=== PATIENT | female | born 1970 | race Caucasian/White ===

== ENCOUNTER 2022-07-02 06:25 | Day surgery (SDC) | payer OTHER, SELFPAY ==
[2022-07-02] MEDS: BUPIVACAINE 0.5% 30 ML INJECTION (06:43)
[2022-07-02 06:50] VITALS: BP 125/80; PULSE 72; RESP 16; TEMP 36.9; O2SAT 100
[2022-07-02 06:56] VITALS: BMI 24.9
[2022-07-02] MEDS: ETHYL CHLORIDE 1 APPLICATION 1 APPLIC TOPICAL (07:24)
[2022-07-02 07:25] VITALS: BP 168/89; PULSE 97; RESP 16; O2SAT 99
[2022-07-02 07:30] VITALS: BP 169/82; PULSE 73; RESP 15; O2SAT 100
[2022-07-02 07:35] VITALS: BP 166/86; PULSE 81; RESP 16; O2SAT 100
[2022-07-02 07:40] VITALS: BP 156/77; PULSE 76; RESP 16; TEMP 36.9; O2SAT 100
[2022-07-02 07:45] VITALS: BP 168/84; PULSE 76; RESP 16; TEMP 36.9; O2SAT 100
--- NOTE | 2022-07-02 09:14 | PM.ORPRC ---
Procedure Note Date of procedure: 07/02/22 Procedure: PREOPERATIVE DIAGNOSIS: 1. Right carpal tunnel syndrome POSTOPERATIVE DIAGNOSIS: 1. Right carpal tunnel syndrome PROCEDURE: 1. Right open carpal tunnel release SURGEON: mEory Long MD. [employer] OFFICER: Arian Agustin PA-C ANESTHESIA: Local anesthetic (50:50 mixture of 1% lidocaine with epi and 0.5% marcaine plain) IMPLANTS: None EBL: 2 mL TOURNIQUET: None COMPLICATIONS: None evident INDICATIONS: The patient is a pleasant 51-year-old female who has experienced right hand numbess/tingling affecting the radial 3.5 digits for multiple months. It has progressively gotten worse. Nonoperative management has been tried and failed, and therefore surgery was recommended. DESCRIPTION OF PROCEDURE: Following a thorough discussion of risks, benefits, and alternatives consent was obtained and the operative extremity was marked. The patient was brought to the operating room and placed supine on the operating table. Local anesthesia induction was undertaken in preop holding. No antibiotics were administered as this was planned to be a local case only. Proper time-out was performed identifying proper patient, site, and procedure. The operative extremity was prepped and draped in the appropriate sterile fashion using ChloraPrep. An incision was made in line with the radial border of the ring finger beginning 1 cm distal to the distal wrist crease and progressing for another 2.5cm distal. Caution was taken to stay proximal to Pedroza's cardinal line. Sharp incision through the skin, subcutaneous tissue, and palmar fascia was performed. The thenar musculature was bluntly elevated off the transverse carpal ligament. The ligament was directly visualized, and divided sharply with a 15 blade. This was released from its most proximal to the most distal extent. Metzenbaum scissor was also utilized to release the fascia extension proximally. We confirmed complete release of the transverse carpal ligament. Closure was performed with 4-O nylon in interrupted fashion. Soft dressings were applied, and the patient was transferred to the recovery room in stable condition. PLAN: 1. Encourage elevation of the operative extremity. 2. Range of motion of the fingers and hand/wrist as tolerated. 3. Ibuprofen/acetaminophen and/or Percocet as needed for pain control. 4. Follow up with PA visit or nurse visit in 12-16 days for wound check and suture removal.
== END 2022-07-02 22:00 | disposition home or self-care (01) ==
PROVIDERS: PCP Family Medicine; Visit Provider Orthopaedic Surgery Sports Medicine
PROC: (CPT 64721; principal; 2022-07-02 07:30)
DX: G56.01 Carpal tunnel syndrome, right upper limb (principal)
CPT/HCPCS: 64721; J3490

== ENCOUNTER 2022-09-17 06:27 | Day surgery (SDC) | payer OTHER, SELFPAY ==
[2022-09-17] VITALS (7 sets, daily range): BP systolic 131–152; BP diastolic 66–93; PULSE 65–75; RESP 16–18; TEMP 36.5–36.8; O2SAT 96–100; BMI 25.3
[2022-09-17] MEDS: BUPIVACAINE 0.5% 30 ML INJECTION (06:50)
[2022-09-17] MEDS: ETHYL CHLORIDE 1 APPLICATION 1 APPLIC TOPICAL (06:50)
--- NOTE | 2022-09-17 07:25 | SUR.PREOP ---
SAME DAY SURGERY LOCAL INJECTION SITE VERIFICATION WAS PERFORMED BY SURGEON/PA AND PATIENT PRIOR TO LOCAL ANESTHETIC BEING INJECTED TO OPERATIVE SITE. Left Wrist, Dr Long 0632 09/17/22
--- NOTE | 2022-09-17 07:39 | PM.ORPRC ---
Procedure Note Date of procedure: 09/17/22 Procedure: PREOPERATIVE DIAGNOSIS: 1. Left carpal tunnel syndrome POSTOPERATIVE DIAGNOSIS: 1. Left carpal tunnel syndrome PROCEDURE: 1. Left open carpal tunnel release SURGEON: Emory Long MD. TIRE REPAIR MECHANIC: CLAUDIO Dalton ANESTHESIA: Local anesthetic (50:50 mixture of 2% lidocaine with epi and 0.5% marcaine plain) IMPLANTS: None EBL: 2 mL TOURNIQUET: None COMPLICATIONS: None evident INDICATIONS: The patient is a pleasant 52-year-old female who has experienced left hand numbess/tingling affecting the radial 3.5 digits for multiple months. It has progressively gotten worse. Nonoperative management has been tried and failed, and therefore surgery was recommended. DESCRIPTION OF PROCEDURE: Following a thorough discussion of risks, benefits, and alternatives consent was obtained and the operative extremity was marked. The patient was brought to the operating room and placed supine on the operating table. Local anesthesia induction was undertaken in preop holding. No antibiotics were administered as this was planned to be a local case only. Proper time-out was performed identifying proper patient, site, and procedure. The operative extremity was prepped and draped in the appropriate sterile fashion using ChloraPrep. An incision was made in line with the radial border of the ring finger beginning 1 cm distal to the distal wrist crease and progressing for another 2.5cm distal. Caution was taken to stay proximal to Pedroza's cardinal line. Sharp incision through the skin, subcutaneous tissue, and palmar fascia was performed. The thenar musculature was bluntly elevated off the transverse carpal ligament. The ligament was directly visualized, and divided sharply with a 15 blade. This was released from its most proximal to the most distal extent. Metzenbaum scissor was also utilized to release the fascia extension proximally. We confirmed complete release of the transverse carpal ligament. Closure was performed with 4-O nylon in interrupted fashion. Soft dressings were applied, and the patient was transferred to the recovery room in stable condition. PLAN: 1. Encourage elevation of the operative extremity. 2. Range of motion of the fingers and hand/wrist as tolerated. 3. Ibuprofen/acetaminophen and/or Percocet as needed for pain control. 4. Follow up with PA visit or nurse visit in 12-16 days for wound check and suture removal.
[2022-09-17] MEDS: NEOMYCIN/BACITRACIN/POLYMYXIN B 1 APPLIC TOPICAL (07:43)
--- NOTE | 2022-09-17 08:24 | SUR.PHASEII ---
Pt verbalized readiness to be discharged and understanding of discharge instructions.
== END 2022-09-17 08:10 | disposition home or self-care (01) ==
PROVIDERS: PCP Family Medicine; Visit Provider Orthopaedic Surgery Sports Medicine
PROC: (CPT 64721; principal; 2022-09-17 07:30)
DX: G56.02 Carpal tunnel syndrome, left upper limb (principal)
CPT/HCPCS: 64721; J3490

== ENCOUNTER 2022-11-07 12:59 | Outpatient (CLI) | payer OTHER, SELFPAY ==
--- NOTE | 2022-11-07 13:00 | CRLHL7_ITS ---
For Patients: As a result of the Century Cures Act, medical imaging exams and procedure reports are released immediately into your electronic medical record. You may view this report before your referring provider. If you have questions, please contact your health care provider. BILATERAL SCREENING MAMMOGRAM WITH COMPUTER-AIDED DETECTION AND TOMOSYNTHESIS TECHNIQUE: CC and MLO views were obtained. These mammographic images have been obtained using full-field digital technique. These mammographic images were interpreted with the benefit of computer-aided detection. Breast Tomosynthesis was used in this interpretation. COMPARISON FILM: 10/04/21, 11/02/20, 10/28/19. FINDINGS: There are scattered areas of fibroglandular density IMPRESSION: There is no radiographic evidence for malignancy. ASSESSMENT: BI-RADS Category 1: Negative RECOMMENDATION: Routine screening mammogram in 1 year. A lay language report of this examination will be provided to the patient. Durga Henao M.D. Diagnostic Radiologist [email or web address] LORENE/Dictated by: Durga Henao MD @ 11/10/2022 8:54:00 AM (Electronically Signed)
== END 2022-11-07 13:00 | disposition home or self-care (01) ==
PROVIDERS: PCP Family Medicine; Visit Provider Physician Assistant
DX: Z12.31 Encounter for screening mammogram for malignant neoplasm of breast (principal); Z13.29 Encounter for screening for other suspected endocrine disorder
CPT/HCPCS: 36415; 77063; 77067; 84443

== ENCOUNTER 2022-12-05 15:02 | Outpatient (CLI) | payer OTHER, SELFPAY ==
--- NOTE | 2022-12-05 15:00 | CRLHL7_ITS ---
For Patients: As a result of the Century Cures Act, medical imaging exams and procedure reports are released immediately into your electronic medical record. You may view this report before your referring provider. If you have questions, please contact your health care provider. CLINICAL HISTORY: Perineal spasms TECHNIQUE: 2D calle scale and color Doppler images were acquired of the pelvis using a transvaginal approach. FINDINGS: On transvaginal imaging, the myometrium has a normal uniform echotexture. The uterus measures 3.9 x 2.7 x 3.7 cm. The endometrial lining appears normal and measures 6 mm in thickness. The ovaries are not visualized. No pelvic free fluid. Increased pelvic vascularity noted left greater than right. IMPRESSION: Bilateral increased pelvic vascularity. Uterus normal. Ovaries not visualized. Dictated by Durga Henao MD @ 12/06/2022 5:22:58 PM (Electronically Signed)
--- NOTE | 2022-12-05 16:00 | CRLHL7_ITS ---
For Patients: As a result of the Century Cures Act, medical imaging exams and procedure reports are released immediately into your electronic medical record. You may view this report before your referring provider. If you have questions, please contact your health care provider. Indication: PERINEAL SPASMS Technique: Postcontrast CT abdomen and pelvis. 66 cc Isovue 370 intravenous contrast. Please note that all CT scans at this facility use dose modulation, iterative reconstruction, and/or weight-based dosing when appropriate to reduce radiation dose to as low as reasonably achievable. Comparison: None Findings: There is no bowel obstruction, free air, free fluid or adenopathy. Increased pelvic vascularity also evaluated on the current pelvic ultrasound. No adnexal mass. Bladder normal. The kidneys and adrenal glands are within normal limits. Normal spleen, pancreas, gallbladder and liver. The lung bases are clear. Osteitis pubis noted. No perineal abscess or soft tissue gas. Impression: No pelvic soft tissue mass, adenopathy or abscess. Please note that all CT scans at this facility use dose modulation, iterative reconstruction, and/or weight-based dosing when appropriate to reduce radiation dose to as low as reasonably achievable. Dictated by Durga Henao MD @ 12/06/2022 5:31:04 PM (Electronically Signed)
== END 2022-12-05 15:03 | disposition home or self-care (01) ==
LOC: US 15:03
PROVIDERS: PCP Family Medicine; Visit Provider Surgery
DX: R10.2 Pelvic and perineal pain (principal)
CPT/HCPCS: 74177; 76830; Q9967

== ENCOUNTER 2023-09-09 12:13 | Outpatient (CLI) | payer OTHER, SELFPAY | END 2023-09-09 12:14 | disposition home or self-care (01) | LOC: NFLDREF 09-10 12:41 | PROVIDERS: PCP Family Medicine; Referring Provider Family Medicine; Visit Provider Nurse Practitioner Family | DX: R30.0 Dysuria (principal); N30.00 Acute cystitis without hematuria; N30.90 Cystitis, unspecified without hematuria | CPT/HCPCS: 87086; 87186 ==

== ENCOUNTER 2023-09-11 09:30 | Outpatient (CLI) | payer OTHER, SELFPAY | END 2023-09-11 09:31 | disposition home or self-care (01) | PROVIDERS: PCP Family Medicine; Visit Provider Family Medicine | DX: R10.13 Epigastric pain (principal); E55.9 Vitamin D deficiency, unspecified; E03.9 Hypothyroidism, unspecified | CPT/HCPCS: 80053; 82306; 84443 ==

== ENCOUNTER 2023-10-02 06:22 | Outpatient (CLI) | payer OTHER, SELFPAY ==
--- NOTE | 2023-10-02 07:47 | W.ANESCHARGE ---
Anesthesia Charges Start Date/Time Anesthesia Start Date: 10/02/23 Anesthesia Start Time: 07:25 Stop Date/Time Anesthesia Stop Date: 10/02/23 Anesthesia Stop Time: 07:45
--- NOTE | 2023-10-02 09:30 | W.ANESCHARGE ---
Anesthesia Charges Start Date/Time Anesthesia Start Date: 10/02/23 Anesthesia Start Time: 07:25 Stop Date/Time Anesthesia Stop Date: 10/02/23 Anesthesia Stop Time: 07:45
== END 2023-10-02 06:23 | disposition home or self-care (01) ==
LOC: OP CLINIC 06:23
PROVIDERS: PCP Family Medicine; Visit Provider Internal Medicine
DX: R10.13 Epigastric pain (principal); K29.70 Gastritis, unspecified, without bleeding
CPT/HCPCS: 00731; 43239; 88305; J2704

== ENCOUNTER 2023-10-07 11:51 | Outpatient (CLI) | payer OTHER, SELFPAY | END 2023-10-07 11:52 | disposition home or self-care (01) | LOC: NFLDREF 10-13 09:45 | PROVIDERS: PCP Family Medicine; Referring Provider Family Medicine; Visit Provider Physician Assistant | DX: R30.0 Dysuria (principal); N39.0 Urinary tract infection, site not specified | CPT/HCPCS: 87086; 87186 ==

== ENCOUNTER 2023-10-16 07:57 | Outpatient (CLI) | payer OTHER, SELFPAY ==
--- NOTE | 2023-10-16 08:15 | CRLHL7_ITS ---
For Patients: As a result of the Century Cures Act, medical imaging exams and procedure reports are released immediately into your electronic medical record. You may view this report before your referring provider. If you have questions, please contact your health care provider. BILATERAL SCREENING MAMMOGRAM WITH COMPUTER-AIDED DETECTION AND TOMOSYNTHESIS TECHNIQUE: CC and MLO views were obtained. These mammographic images have been obtained using full-field digital technique. These mammographic images were interpreted with the benefit of computer-aided detection. Breast Tomosynthesis was used in this interpretation. COMPARISON FILM 10/04/21, 11/02/20, 10/28/19. FINDINGS: There are scattered areas of fibroglandular density. IMPRESSION: There is no radiographic evidence for malignancy. ASSESSMENT: BI-RADS Category 1: Negative RECOMMENDATION: Routine screening mammogram in 1 year. A lay language report of this examination will be provided to the patient. Durga Henao M.D. Diagnostic Radiologist [email or web address] SP/Dictated by: Durga Henao MD @ 10/16/2023 10:04:00 AM (Electronically Signed)
== END 2023-10-16 07:58 | disposition home or self-care (01) ==
LOC: MAMMO 07:58
PROVIDERS: PCP Family Medicine; Visit Provider Physician Assistant
DX: Z12.31 Encounter for screening mammogram for malignant neoplasm of breast (principal)
CPT/HCPCS: 77063; 77067

== ENCOUNTER 2024-11-04 08:45 | Outpatient (CLI) | payer BC, SELFPAY | END 2024-11-04 08:46 | disposition home or self-care (01) | PROVIDERS: PCP Family Medicine; Visit Provider Physician Assistant | DX: R68.82 Decreased libido (principal); E55.9 Vitamin D deficiency, unspecified; Z13.6 Encounter for screening for cardiovascular disorders; Z13.1 Encounter for screening for diabetes mellitus | CPT/HCPCS: 80061; 82947; 84403; 84443 ==

== ENCOUNTER 2024-12-16 13:04 | Outpatient (CLI) | payer BC, SELFPAY ==
--- NOTE | 2024-12-16 13:20 | CRLHL7_ITS ---
For Patients: As a result of the Cures Act, medical imaging exams and procedure reports are released immediately into your electronic medical record. You may view this report before your referring provider. If you have questions, please contact your health care provider. BILATERAL SCREENING MAMMOGRAM WITH COMPUTER-AIDED DETECTION AND TOMOSYNTHESIS TECHNIQUE: CC and MLO views were obtained. These mammographic images have been obtained using full-field digital technique. These mammographic images were interpreted with the benefit of computer-aided detection. Breast Tomosynthesis was used in this interpretation. COMPARISON FILM: 10/16/23, 11/07/22, 10/04/21. FINDINGS: There are scattered areas of fibroglandular density IMPRESSION: There is no radiographic evidence for malignancy. ASSESSMENT: BI-RADS Category 1: Negative RECOMMENDATION: Routine screening mammogram in 1 year. A lay language report of this examination will be provided to the patient. Durga Henao M.D. Diagnostic Radiologist [email or web address] JOSE J/nicolás / bM/Dictated by: Durga Henao MD @ 12/26/2024 8:38:00 AM (Electronically Signed)
== END 2024-12-16 13:05 | disposition home or self-care (01) ==
LOC: MAMMO 13:05
PROVIDERS: PCP Family Medicine; Visit Provider Physician Assistant
DX: Z12.31 Encounter for screening mammogram for malignant neoplasm of breast (principal)
CPT/HCPCS: 77063; 77067

== ENCOUNTER 2025-01-20 12:12 | Outpatient (CLI) | payer BC, SELFPAY | END 2025-01-20 12:13 | disposition home or self-care (01) | LOC: NFLDREF 01-23 04:08 | PROVIDERS: PCP Family Medicine; Referring Provider Family Medicine; Visit Provider Family Medicine | DX: R35.0 Frequency of micturition (principal) | CPT/HCPCS: 87086 ==